=== PATIENT | female | born 2000 | race Two or more races ===

== ENCOUNTER 2021-11-03 17:07 | Inpatient (IN) | payer OTHER ==
[~2021-11-03] VITALS: Ht 157.5 cm; Wt 66.2 kg
[2021-11-03] MEDS ORDERED: PRENATAL TABLE1 EAC1 PO (18:12)
== END 2021-11-04 18:40 | disposition home or self-care (01) | DRG 833 ==
LOC: EDBD 17:07 → LDR 17:07
PROVIDERS: ADMIT Student in an Organized Health Care Education/Training Program; ATTEND Student in an Organized Health Care Education/Training Program
PROC: 4A1HXFZ Monitoring of Products of Conception, Cardiac Rhythm, External Approach (ICD-10-PCS; principal; 2021-11-03)
DX: O47.03 False labor before 37 completed weeks of gestation, third trimester (principal); Z3A.35 35 weeks gestation of pregnancy

== ENCOUNTER 2021-11-20 12:45 | Inpatient (IN) | payer OTHER ==
[~2021-11-20] VITALS: Ht 157.5 cm; Wt 68.0 kg
[~2021-11-20 12:45] MED LIST: PRENATAL TABLE1 EAC1 PO
== END 2021-12-01 16:28 | disposition home or self-care (01) | DRG 807 ==
LOC: OB/GYN 11-29 01:49 → LDR 11-29 01:49 → OB/GYN 11-29 19:19
PROVIDERS: ADMIT Student in an Organized Health Care Education/Training Program; ATTEND Student in an Organized Health Care Education/Training Program
PROC: 10E0XZZ Delivery of Products of Conception, External Approach (ICD-10-PCS; principal; 2021-11-29)
PROC: 0KQM0ZZ Repair Perineum Muscle, Open Approach (ICD-10-PCS; 2021-11-29)
PROC: 4A1HXCZ Monitoring of Products of Conception, Cardiac Rate, External Approach (ICD-10-PCS; 2021-11-29)
DX: O70.1 Second degree perineal laceration during delivery (principal); Z37.0 Single live birth; Z20.822 Contact with and (suspected) exposure to COVID-19; Z3A.39 39 weeks gestation of pregnancy